=== PATIENT | male | born 1970 | race Caucasian/White ===

== ENCOUNTER 2019-05-07 06:33 | Day surgery (SDC) | payer OTHER ==
[2019-05-07] MEDS ORDERED: Sodium Phosphate,Monobasic/Sodium Phosphate,Dibasic Enema 133 ML Bottle RECTAL ONE (06:54)
[2019-05-07] MEDS ORDERED: Lactated Ringers 1,000 ML IV SCH (07:15)
[2019-05-07] MEDS ORDERED: Propofol 200 MG/20 ML SDV ONE ×2 (07:33→07:56)
[2019-05-07] MEDS ORDERED: fentaNYL 100 MCG/2 ML SDV ONE (07:34)
[2019-05-07] MEDS ORDERED: Midazolam 1 MG/ML 2 ML SDV ONE (07:34)
--- NOTE | 2019-05-07 15:01 | OR ---
DATE OF PROCEDURE: 05/07/2019 SURGEON: Jay Owen MD PREOPERATIVE DIAGNOSIS: Abnormal PET scan. POSTOPERATIVE DIAGNOSES: Diverticulosis, 2 pedunculated polyps, abnormal PET scan, etiology unknown. PROCEDURE PERFORMED: Colonoscopy to the cecum with snare cautery polypectomy of cecal and transverse colon polyps. ANESTHESIA: IV anesthesia with monitored anesthesia care. INDICATION: This 48-year-old white male had a nodule seen on CAT scan in his lung. A PET scan was ordered. This showed the nodule to be most likely not malignant; however, the PET scan also noted some activity in the rectum. He was referred in for a colonoscopy. He has never had a colonoscopic exam. I counseled him for the procedure, including risks and alternatives, and he gave his informed consent to proceed. DESCRIPTION OF PROCEDURE: The patient was placed in the left lateral decubitus position. IV anesthesia was administered by the Anesthesia Service. Time-out was held. A rectal exam was performed, which was unremarkable. The flexible video Olympus colonoscope was introduced through his anus, up his rectum, and out his colon all the way to the cecum. En route, in the transverse colon, we saw a pedunculated polyp. The snare was passed about its base. The polyp was elevated up away from the bowel wall and amputated as electrocautery was applied. The polyp was aspirated through the scope and captured in a polyp trap. In the cecum, we saw another pedunculated polyp. Again, the snare was passed about its base, it was elevated up away from the bowel wall and amputated as electrocautery was applied. This polyp also was aspirated up through the scope and captured in a polyp trap. The scope was then slowly withdrawn examining the mucosa throughout. Other than a few scattered left- sided diverticula, no other lesions were noted. The scope was retroflexed in the rectum with the distal rectum appearing unremarkable. The scope was straightened and removed. He tolerated the procedure well. Jay Owen MD /[id number]
== END 2019-05-07 09:25 | disposition home or self-care (01) ==
LOC: JP.SDS 06:33
PROVIDERS: ATTEND Surgery
DX: D12.3 Benign neoplasm of transverse colon (principal); D12.0 Benign neoplasm of cecum; K57.30 Diverticulosis of large intestine without perforation or abscess without bleeding; R93.5 Abnormal findings on diagnostic imaging of other abdominal regions, including retroperitoneum; R91.1 Solitary pulmonary nodule; Z88.0 Allergy status to penicillin; Z88.5 Allergy status to narcotic agent
CPT/HCPCS: 88305; A9270-GY; J2250; J2704; J3010; J7120

== ENCOUNTER 2022-08-14 06:28 | Day surgery (SDC) | payer OTHER ==
[2022-08-14] MEDS ORDERED: Lidocaine 1% with EPINEPHrine 1:100,000 50 ML MDV ONE (06:51)
[2022-08-14] MEDS ORDERED: Bupivacaine 0.5% 30 ML SDV ONE (06:51)
[2022-08-14] MEDS ORDERED: Midazolam 1 MG/ML 2 ML SDV ONE (07:10)
[2022-08-14] MEDS ORDERED: fentaNYL 100 MCG/2 ML SDV ONE (07:10)
[2022-08-14] MEDS ORDERED: Propofol 200 MG/20 ML SDV ONE ×2 (07:10→09:00)
[2022-08-14] MEDS ORDERED: Dextrose 5%-Lactated Ringers 1,000 ML IV SCH (07:30)
[2022-08-14] MEDS ORDERED: ceFAZolin 2 GM in Premix Bag 1 BAG IV ONE (07:30)
[2022-08-14] MEDS ORDERED: ceFAZolin 2 GM in Sodium Chloride 0.9% 50 ML IV ONE (07:30)
[2022-08-14] MEDS ORDERED: Mupirocin Oint 22 GM Tube ONE (08:32)
== END 2022-08-14 10:09 | disposition home or self-care (01) ==
LOC: JP.SDS 06:28
PROVIDERS: ATTEND Surgery
DX: L57.0 Actinic keratosis (principal); Z79.899 Other long term (current) drug therapy; Z88.0 Allergy status to penicillin; Z88.6 Allergy status to analgesic agent; Z88.8 Allergy status to other drugs, medicaments and biological substances
CPT/HCPCS: 88305; 88331; A9270-GY; J0690; J2250; J2704; J3010; J3490; J7121

== ENCOUNTER 2022-09-06 01:41 | Emergency (ER) | payer OTHER ==
[2022-09-06] MEDS ORDERED: HYDROmorphone 1 MG/ML Syringe IM ONE (02:01)
[2022-09-06] MEDS ORDERED: Methocarbamol 500 MG Tab PO ONE (02:01)
[2022-09-06] MEDS ORDERED: Ondansetron 4 MG Tab.DIS PO ONE (02:13)
[2022-09-06] MEDS ORDERED: Gabapentin 300 MG Cap PO ONE (03:30)
== END 2022-09-06 03:51 | disposition home or self-care (01) ==
LOC: JP.ED 01:41
DX: S29.012A Strain of muscle and tendon of back wall of thorax, initial encounter (principal); M47.814 Spondylosis without myelopathy or radiculopathy, thoracic region; E78.00 Pure hypercholesterolemia, unspecified; I10 Essential (primary) hypertension; E11.9 Type 2 diabetes mellitus without complications; F17.210 Nicotine dependence, cigarettes, uncomplicated; Z88.5 Allergy status to narcotic agent; Z88.0 Allergy status to penicillin; Z88.8 Allergy status to other drugs, medicaments and biological substances; Z79.84 Long term (current) use of oral hypoglycemic drugs; Z79.899 Other long term (current) drug therapy
CPT/HCPCS: 72128; 72131; 76377; 96374; 99285; A9270; J1170; Q0162

== ENCOUNTER 2022-09-06 19:50 | Emergency (ER) | payer OTHER ==
[2022-09-06] MEDS ORDERED: Ondansetron 4 MG/2 ML SDV IVPUSH ONE (20:43)
[2022-09-06] MEDS ORDERED: HYDROmorphone 1 MG/ML Syringe IVPUSH ONE ×2 (20:43→21:05)
[2022-09-06 21:18] LABS: ESTIMATED GFR 90 mL/min (>60)
[2022-09-06] MEDS: Sodium Chloride 0.9% 10 ML Syringe FLUSH PRN ×2 (21:21→23:38)
[2022-09-06 21:40] LABS: CORONAVIRUS COVID-19 NAA NEGATIVE (NEGATIVE)
[2022-09-06] MEDS ORDERED: Azithromycin 250 MG Tab PO STA (21:57)
[2022-09-06] MEDS ORDERED: Dexamethasone 4 MG/ML SDV IVPUSH STA (21:57)
[2022-09-06] MEDS ORDERED: Codeine/guaiFENesin 10-100 MG/5 ML Syrup 5 ML Cup PO PRN (23:41)
== END 2022-09-07 01:47 | disposition home or self-care (01) ==
LOC: JP.ED 19:50
DX: S29.012A Strain of muscle and tendon of back wall of thorax, initial encounter (principal); M47.814 Spondylosis without myelopathy or radiculopathy, thoracic region; J20.9 Acute bronchitis, unspecified; E78.00 Pure hypercholesterolemia, unspecified; I10 Essential (primary) hypertension; E11.9 Type 2 diabetes mellitus without complications; Z79.84 Long term (current) use of oral hypoglycemic drugs; Z79.899 Other long term (current) drug therapy; Z88.0 Allergy status to penicillin; Z88.8 Allergy status to other drugs, medicaments and biological substances; Z88.5 Allergy status to narcotic agent; Z20.822 Contact with and (suspected) exposure to COVID-19
CPT/HCPCS: 0241U; 36415; 71046; 71046-26; 80053; 85025; 85379; 86140; 96374; 96375; 99285-25; A9270-GY; J1100; J1170; J2405; J3490

== ENCOUNTER 2024-10-06 06:50 | Day surgery (SDC) | payer OTHER ==
[2024-10-06] MEDS ORDERED: Propofol 200 MG/20 ML SDV ONE (06:53)
[2024-10-06] MEDS ORDERED: Midazolam 1 MG/ML 2 ML SDV ONE (06:53)
[2024-10-06] MEDS ORDERED: fentaNYL 100 MCG/2 ML SDV ONE (06:53)
[2024-10-06] MEDS: Lactated Ringers 1,000 ML IV SCH (08:49)
== END 2024-10-06 09:37 | disposition home or self-care (01) ==
LOC: JP.SDS 06:50
PROVIDERS: ATTEND Surgery
DX: Z12.11 Encounter for screening for malignant neoplasm of colon (principal); I10 Essential (primary) hypertension; E11.9 Type 2 diabetes mellitus without complications; Z86.0100 Personal history of colon polyps, unspecified
CPT/HCPCS: 45378; J2250; J2704; J3010; J7120; 00812-QZ